=== PATIENT | female | born 1970 | race Caucasian/White ===

== ENCOUNTER 2019-10-23 13:21 | Emergency (ER) | payer BC ==
[2019-10-23 13:26] VITALS: BP 146/84
[2019-10-23] MEDS ORDERED: DIPH/PERTUSS(ACELL)/TETANUS VAC/PF 0.5 ML SYR (>=10YO) IM ONE (14:11)
--- NOTE | 2019-10-23 14:14 | ER Document Report ---
ED Medical Screen (RME) - General Chief Complaint: Laceration Stated Complaint: LACERATION/LEFT FOOT Time Seen by Provider: 10/23/19 14:06 Notes: HPI: 49-year-old female not up-to-date on tetanus vaccination presenting for laceration to the top of the left foot. Patient dropped a glass bottle filled with liquid onto a glass table which broke and fell onto her foot cutting the foot. Patient states that she is unable to extend the left third toe and is worried she cut a tendon PHYSICAL EXAMINATION: There is a 1.5 cm L-shaped laceration to the dorsal aspect of the left foot proximal to the MTP region of the third toe. Patient is unable to extend the third toe. No definitive visualized tendon laceration or foreign body I have greeted and performed a rapid initial assessment of this patient. A comprehensive ED assessment and evaluation of the patient, analysis of test results and completion of medical decision making process will be conducted by an additional ED providers. - Related Data Allergies/Adverse Reactions: No Known Allergies Allergy (Verified 10/23/19 14:05) Physical Exam - Vital signs Vitals: Temp Pulse Resp BP Pulse Ox 98.3 F 96 16 146/84 H 97 10/23/19 13:25 10/23/19 13:25 10/23/19 13:25 10/23/19 13:25 10/23/19 13:25 Course - Vital Signs Vital signs: Temp Pulse Resp BP Pulse Ox 98.3 F 96 16 146/84 H 97 10/23/19 13:25 10/23/19 13:25 10/23/19 13:25 10/23/19 13:25 10/23/19 13:25
[2019-10-23] MEDS ORDERED: LIDOCAINE 1%/EPINEPHRINE INJ 20 ML VIAL INJ ONE (14:46)
--- NOTE | 2019-10-23 14:49 | ER Document Report ---
ED Wound - General Chief Complaint: Laceration Stated Complaint: LACERATION/LEFT FOOT Time Seen by Provider: 10/23/19 14:06 Notes: CHIEF COMPLAINT: Left foot laceration HPI: Please see RME note for history ROS: See HPI - all other systems were reviewed and are otherwise negative Constitutional: no fever Integumentary: Positive laceration rash Allergy: no hives Musculoskeletal: + extremity pain or swelling Neurological: no numbness/tingling, + weakness MEDICATIONS: I agree with the patient medications as charted by the RN. ALLERGIES: I agree with the allergies as charted by the RN. PAST MEDICAL HISTORY/PAST SURGICAL HISTORY: Reviewed and agree as charted by RN. SOCIAL HISTORY: Reviewed and agree as charted by RN. FAMILY HISTORY: No significant familial comorbid conditions directly related to patient complaint EXAM: Reviewed vital signs as charted by RN. CONSTITUTIONAL: Alert and oriented and responds appropriately to questions. Well-appearing; well-nourished HEAD: Normocephalic; atraumatic EYES: PERRL; Conjunctivae clear, sclerae non-icteric ENT: normal nose; no rhinorrhea; moist mucous membranes NECK: Supple without meningismus CARD: Capillary refill less than 3 seconds; symmetric distal pulses RESP: Normal chest excursion without splinting or tachypnea ABD/GI: non-distended BACK: The back appears normal EXT: There is a 1.5 cm L-shaped laceration over the dorsal aspect of the left foot proximal to the MTP region of the third toe. Patient with inability to extend the left third toe at the MTP region, sensation intact of distal toe to touch with capillary refill less than 3 seconds SKIN: Normal color for age and race; warm; dry; good turgor NEURO: Moves all extremities equally; Motor and sensory function intact PSYCH: The patient's mood and manner are appropriate. Grooming and personal hygiene are appropriate. MDM: 49-year-old female with laceration to the left foot, will obtain x-ray for foreign body. Concern for possible tendon injury on the dorsal aspect as she is unable to extend the third toe. I discussed this with the patient. She states she is visiting from [place] and will plan to return home if she needs a tendon repair - Related Data Allergies/Adverse Reactions: No Known Allergies Allergy (Verified 10/23/19 14:05) Past Medical History - Social History Smoking Status: Current Every Day Smoker Frequency of alcohol use: Occasional Drug Abuse: None Family History: Reviewed & Not Pertinent Patient has homicidal ideation: No Physical Exam - Vital signs Vitals: Temp Pulse Resp BP Pulse Ox 98.3 F 96 16 146/84 H 97 10/23/19 13:25 10/23/19 13:25 10/23/19 13:25 10/23/19 13:25 10/23/19 13:25 Course - Re-evaluation Re-evalutation: 10/23/19 16:13 Patient noted to have a foreign body on x-ray. The foreign body itself on actual examination is very deep between the metatarsals. I was able to occasionally feel the foreign body but was unable to definitively grasp it or remove it. I discussed this at length with the patient during the procedure. I was able to visualize the distal portion of the cut dorsal extensor tendon for the third toe but not the proximal end. 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 Discussed with Dr. Bonilla, attending. Will give patient copy of her x- ray, place her on Keflex, postop shoe, follow-up orthopedics when she returns home. She is aware that we were unable to remove the foreign body - Vital Signs Vital signs: Temp Pulse Resp BP Pulse Ox 98.3 F 96 16 146/84 H 97 10/23/19 14:06 10/23/19 13:25 10/23/19 13:25 10/23/19 13:25 10/23/19 13:25 Procedures - Laceration/Wound Repair Left Dorsal Foot 3rd digit Time completed: 16:15 Wound length (cm): 1.5 Wound's Depth, Shape: Linear, Irregular, Other - L-shaped Laceration pre-procedure: Sterile PPE donned, Sterile drapes applied, Shur-Clens applied, Other - Saline Anesthetic type: 1% Lidocaine w/epi Volume Anesthetic (mLs): 2 Wound explored: No foreign body removed - Appears to be a glass foreign body adjacent to the metatarsal head of the fourth toe deep in the tissue. Was unable to remove during procedure Irrigated w/ Saline (mLs): 500 Wound Repaired With: Sutures - Loose closure Suture Size/Type: 4:0, Prolene Number of Sutures: 4 Layer Closure?: No Post-procedure wound care: Sterile dressing applied Post-procedure NV exam normal: Yes - Unchanged from prior Complications: Yes - Unable to remove the foreign body, there was a visualized dorsal extensor t Discharge - Discharge Clinical Impression: Laceration of tendon of left foot Laceration of foot with foreign body Qualifiers: Encounter type: initial encounter Laterality: left Qualified Code(s): S91.322A - Laceration with foreign body, left foot, initial encounter Condition: Stable Disposition: HOME, SELF-CARE Additional Instructions: Keep the wound area clean and dry washing gently with soap and water daily. Apply a small amount of antibiotic ointment dressing to the wound area until healed. It was noted today that you appear to have a tendon laceration that will need repair by orthopedics. There was also a foreign body noted on the x- ray that we were unable to retrieve from the wound area. This will also need to be evaluated by orthopedics. Follow-up with them when you return home to [place] as discussed. Take the Keflex for infection prevention. Motrin consistently for pain. Limited weightbearing until evaluated by orthopedics Prescriptions: Cephalexin Monohydrate [Keflex 500 mg Capsule] 500 mg PO Q6H 7 Days #28 capsule Ibuprofen [Motrin 600 Mg Tablet] 600 mg PO Q6H #15 tablet
--- NOTE | 2019-10-23 15:40 | RADIOLOGY REPORT (SQ) ---
EXAM DESCRIPTION: FOOT LEFT COMPLETE IMAGES COMPLETED DATE/TIME: 10/23/2019 3:13 pm REASON FOR STUDY: FB COMPARISON: None. NUMBER OF VIEWS: Three views. TECHNIQUE: AP, lateral and oblique radiographic images acquired of the left foot. LIMITATIONS: None. FINDINGS: MINERALIZATION: Normal. BONES: No acute fracture or dislocation. No worrisome bone lesions. JOINTS: No effusions. SOFT TISSUES: A 6.0 mm linear opaque density adjacent to the medial aspect of the head of the fourth metatarsal bone may represent foreign object. OTHER: No other significant finding. IMPRESSION: 1. A linear opaque density adjacent to the head of the fourth metatarsal bone may repre sent foreign object. 2. No acute osseous findings. TECHNICAL DOCUMENTATION: JOB ID: [id number] [employer]- All Rights Reserved Reading location - IP/workstation name: [email or web address]
[2019-10-23] MEDS ORDERED: CEPHALEXIN 500 MG CAPSULE PO ONE (16:17)
== END 2019-10-23 16:20 | disposition home or self-care (01) ==
LOC: ER 13:21
DX: S96.922A Laceration of unspecified muscle and tendon at ankle and foot level, left foot, initial encounter (principal); S91.312A Laceration without foreign body, left foot, initial encounter; W25.XXXA Contact with sharp glass, initial encounter; Z23 Encounter for immunization
CPT/HCPCS: 99283; 90471; 73630; 90715; 12041; J3490